=== PATIENT | female | born 1935 | race Caucasian/White ===

== ENCOUNTER → 2016-06-18 | Outpatient (CLI) | payer MEDICARE, BC | END | disposition home or self-care (01) | LOC: PCVCCLINIC 08:24 | PROVIDERS: ATTEND Internal Medicine Cardiovascular Disease | DX: E78.5 Hyperlipidemia, unspecified (principal) | CPT/HCPCS: 80061 ==

== ENCOUNTER → 2016-06-25 | Outpatient (CLI) | payer MEDICARE, BC | END | disposition home or self-care (01) | LOC: PCVCIMAG 12:53 | PROVIDERS: ATTEND Internal Medicine Cardiovascular Disease | DX: I65.23 Occlusion and stenosis of bilateral carotid arteries (principal); E78.5 Hyperlipidemia, unspecified; I10 Essential (primary) hypertension; E11.9 Type 2 diabetes mellitus without complications; I25.10 Atherosclerotic heart disease of native coronary artery without angina pectoris; I35.0 Nonrheumatic aortic (valve) stenosis | CPT/HCPCS: 93005; 93880; G0463 ==

== ENCOUNTER → 2016-11-05 | Outpatient (CLI) | payer MEDICARE, BC ==
--- NOTE | 2016-11-05 10:13 | PCVCIMAG ---
EXAM: BILATERAL LOWER EXTREMITY ARTERIAL DUPLEX INDICATION: Peripheral Arterial Disease. Leg pain. FINDINGS: Right Leg: Satisfactory arterial waveforms in the common femoral and profunda femoral artery and throughout the superficial femoral artery and popliteal artery without flow-limiting stenosis. Occlusion mid anterior tibial artery. Peroneal artery is patent. 50% stenosis mid posterior tibial artery. Left Leg: Satisfactory arterial waveforms in the common femoral and profunda femoral artery and throughout the superficial femoral artery and popliteal artery without flow-limiting stenosis. Occlusion mid anterior tibial artery. Peroneal artery is patent. 50% stenosis mid posterior tibial artery. IMPRESSION: No flow-limiting superficial femoral or popliteal artery stenosis bilaterally. Occlusion of the mid/distal anterior tibial arteries bilaterally. Mild bilateral posterior tibial artery stenosis. LOC:[id number]
== END | disposition home or self-care (01) ==
LOC: PCVCIMAG 07:51
PROVIDERS: ATTEND Internal Medicine Cardiovascular Disease
DX: I73.9 Peripheral vascular disease, unspecified (principal); I77.89 Other specified disorders of arteries and arterioles
CPT/HCPCS: 93925

== ENCOUNTER → 2017-03-30 | Outpatient (CLI) | payer MEDICARE, BC ==
--- NOTE | 2017-03-30 15:08 | PCVCIMAG ---
APPROVED REPORT Study performed: 03/30/2017 13:00:55 EXAM: Comprehensive 2D, Doppler, and color-flow Echocardiogram Patient Location: Echo lab Status: routine BSA: 1.82 HR: 61 bpmBP: 120/62 mmHg Rhythm: NSR Other Information Study Quality: Adequate Risk Factors: Cardiac Risk Factors: HTN Indications Diabetes CAD Aortic Stenosis 2D Dimensions LVEF(%): 49.60 (>50%) IVSd: 11.55 (7-11mm)LVOT Diam: 21.31 (18-24mm) LVDd: 39.43 mm PWd: 12.24 (7-11mm) LVDs: 29.68 (25-40mm) Left Atrium: 41.39 (27-40mm) Aortic Root: 27.34 mm LV Single Plane 4CH: 56.87 % LV Single Plane 2CH: 55.24 %Mcdonald's LVEF: 56.06 % Biplane EF: 54.5 % Volumes Left Atrial Volume (Systole) Single Plane 4CH: 73.31 mLSingle Plane 2CH: 77.82 mL LA ESV Index: 45.00 mL/m2 Aortic Valve AoV Peak Raj.: 2.50 m/s AO Peak Gr.: 25.04 mmHgLVOT Max P.53 mmHg AO Mean Gr.: 12.72 mmHgLVOT Mean P.50 mmHg AO V2 Mean: 1.68 m/sLVOT Max V: 1.06 m/s AO V2 VTI: 62.90 cm ELROY (VTI): 1.58 [id number] V1 VTI: 27.88 cm ELROY Vmax: 1.51 cm2 AI Vmax: 4.37 m/s AI [place]: 2.27 m/s2 AI PHT: 557.86 ms Mitral Valve E/A Ratio: 0.8 MV Decel. Time: 216.95 ms MV E Max Raj.: 0.93 m/s MV A Raj.: 1.12 m/s MV PHT: 62.92 ms IVRT: 121.11 ms Pulmonary Valve PV Peak Raj.: 0.94 m/sPV Peak Gr.: 3.55 mmHg Pulmonary Vein P Vein S: 0.31 m/sP Vein A: 0.28 m/s P Vein D: 0.51 m/sP Vein A Dur.: 131.5 msec P Vein S/D Ratio: 0.61 Tricuspid Valve TR Peak Raj.: 2.10 m/s TR Peak Gr.: 17.60 mmHg Left Ventricle The left ventricle is normal size. There is normal LV segmental wall motion. Mild concentric left ventricular hypertrophy. Left ventricular systolic function is normal. The left ventricular ejection fraction is within the normal range. LVEF is 55-60%. Grade I - abnormal relaxation pattern. Right Ventricle The right ventricle is normal size. The right ventricular systolic function is normal. Atria Left atrium is mild-moderately dilated. The right atrium size is normal. Aortic Valve The aortic valve is mildly to moderately sclerotic. No aortic regurgitation is present. There is mild valvular aortic stenosis. Calculated aortic valve area is 1.5 cm2 with maximum pressure gradient of 25 mmHg and mean pressure gradient of 13 mmHg. Mitral Valve The mitral valve is normal in structure. There is no mitral valve regurgitation noted. No evidence of mitral valve stenosis. Tricuspid Valve The tricuspid valve is normal in structure. There is no tricuspid valve regurgitation noted. Pulmonic Valve The pulmonary valve is normal in structure. There is no pulmonic valvular regurgitation. Great Vessels The aortic root is normal in size. IVC is normal in size and collapses with >50% inspiration Pericardium There is no pericardial effusion. There is no pleural effusion. <Conclusion> The left ventricle is normal size. Mild concentric left ventricular hypertrophy. LVEF is 55-60%. Grade I - abnormal relaxation pattern. Left atrium is mild-moderately dilated. The right atrium size is normal. The aortic valve is mildly to moderately sclerotic. There is mild valvular aortic stenosis. Calculated aortic valve area is 1.5 cm2 with maximum pressure gradient of 25 mmHg and mean pressure gradient of 13 mmHg. There is no mitral valve regurgitation noted. There is no pericardial effusion.
--- NOTE | 2017-03-30 15:09 | PCVCIMAG ---
EXAM: BILATERAL CAROTID DUPLEX INDICATION: Carotid Occlusive Disease. FINDINGS: Doppler Measurements (centimeters per second): RIGHT: Peak CCA-68, Peak ECA-91, Diastolic ICA-15, Peak ICA-89, ICA/CCA Ratio-1.3. LEFT: Peak CCA-81, Peak ECA-85, Diastolic ICA-25, Peak ICA-200, ICA/CCA Ratio-2.5. RIGHT CAROTID: The carotid bulb has moderate plaque. The proximal internal carotid artery shows <40% stenosis. The common carotid artery shows no significant stenosis. The external carotid artery shows no significant stenosis. LEFT CAROTID: The carotid bulb has moderate plaque. The proximal internal carotid artery shows 60% stenosis. The common carotid artery shows no significant stenosis. The external carotid artery shows no significant stenosis. Antegrade flow in both vertebral arteries. IMPRESSION: <40% stenosis of the right internal carotid artery with moderate plaque. 60% stenosis of the left internal carotid artery with moderate plaque. LOC:[place] [id number]
== END | disposition home or self-care (01) ==
LOC: PCVCIMAG 12:42
PROVIDERS: ATTEND Internal Medicine Cardiovascular Disease
DX: I65.23 Occlusion and stenosis of bilateral carotid arteries (principal); I25.10 Atherosclerotic heart disease of native coronary artery without angina pectoris; I10 Essential (primary) hypertension; I77.9 Disorder of arteries and arterioles, unspecified; E11.9 Type 2 diabetes mellitus without complications; I35.0 Nonrheumatic aortic (valve) stenosis; R29.898 Other symptoms and signs involving the musculoskeletal system; Z79.899 Other long term (current) drug therapy; Z79.82 Long term (current) use of aspirin
CPT/HCPCS: 80061; 93005; 93306; 93880; G0463

== ENCOUNTER → 2017-05-06 | Outpatient (CLI) | payer MEDICARE, BC | END | disposition home or self-care (01) | LOC: PCVCIMAG 15:15 | DX: I73.9 Peripheral vascular disease, unspecified (principal); I70.8 Atherosclerosis of other arteries | CPT/HCPCS: 93925 ==

== ENCOUNTER → 2017-10-28 | Outpatient (CLI) | payer MEDICARE, BC ==
[~2017-10-28] MED LIST: REGADENOSON 0.4 MG/5 ML DISP.SYRIN. IV
== END | disposition home or self-care (01) ==
LOC: PCVCIMAG 14:21
DX: I25.10 Atherosclerotic heart disease of native coronary artery without angina pectoris (principal); I10 Essential (primary) hypertension; I65.23 Occlusion and stenosis of bilateral carotid arteries; E78.5 Hyperlipidemia, unspecified; I73.9 Peripheral vascular disease, unspecified; E11.9 Type 2 diabetes mellitus without complications; I44.7 Left bundle-branch block, unspecified; I35.0 Nonrheumatic aortic (valve) stenosis; Z79.899 Other long term (current) drug therapy
CPT/HCPCS: 78452; 93005; 93017; A9500; G0463; J2785

== ENCOUNTER → 2018-05-21 | Outpatient (CLI) | payer MEDICARE, BC ==
--- NOTE | 2018-05-21 14:11 | PCVCIMAG ---
EXAM: BILATERAL CAROTID DUPLEX INDICATION: Carotid Occlusive Disease. FINDINGS: Doppler Measurements (centimeters per second): RIGHT: Peak CCA-62, Peak ECA-77, Diastolic ICA-21, Peak ICA-92, ICA/CCA Ratio-1.5. LEFT: Peak CCA-73, Peak ECA-115, Diastolic ICA-44, Peak ICA-269, ICA/CCA Ratio-3.7. RIGHT CAROTID: The carotid bulb has moderate plaque. The proximal internal carotid artery shows <40% stenosis. The common carotid artery shows no significant stenosis. The external carotid artery shows no significant stenosis. LEFT CAROTID: The carotid bulb has moderate plaque. The proximal internal carotid artery shows 70-80% stenosis. The common carotid artery shows no significant stenosis. The external carotid artery shows no significant stenosis. Antegrade flow in both vertebral arteries. IMPRESSION: <40% stenosis of the right internal carotid artery with moderate plaque. 70-80% stenosis of the left internal carotid artery with moderate plaque. Since March 2017 there has been progression of left carotid stenosis. Interval follow-up in 6 months is suggested. LOC:[id number]
--- NOTE | 2018-05-21 17:29 | PCVCIMAG ---
APPROVED REPORT Study performed: 05/21/2018 14:02:56 EXAM: Comprehensive 2D, Doppler, and color-flow Echocardiogram Patient Location: Echo lab Room #: 2Status: routine BSA: 1.82 HR: 53 bpmBP: 116/48 mmHg Rhythm: NSR Other Information Study Quality: Good Risk Factors: Cardiac Risk Factors: HTN, Hyperlipidemia, DM Indications Aortic Valve Disease Diabetes CAD Hypertension/HDD 2D Dimensions IVSd: 7.99 (7-11mm)LVOT Diam: 20.78 (18-24mm) LVDd: 46.96 mm PWd: 9.40 (7-11mm)Ascending Ao: 31.65 (22-36mm) LVDs: 31.44 (25-40mm) Left Atrium: 39.97 (27-40mm) Aortic Root: 24.98 mm LV Single Plane 4CH: 55.90 % LV Single Plane 2CH: 59.67 % Biplane EF: 57.3 % Volumes Left Atrial Volume (Systole) Single Plane 4CH: 63.84 mLSingle Plane 2CH: 75.97 mL Biplane LA Volume: 70.00 mLLA ESV Index: 39.00 mL/m2 Aortic Valve AoV Peak Raj.: 2.43 m/s AO Peak Gr.: 24.84 mmHgLVOT Max P.76 mmHg AO Mean Gr.: 16.02 mmHgLVOT Mean P.43 mmHg AO V2 Mean: 1.94 m/sLVOT Max V: 0.99 m/s AO V2 VTI: 69.71 cmLVOT Mean V: 0.75 m/s ELROY (VTI): 1.36 [id number] V1 VTI: 27.91 cm ELROY Vmax: 1.38 cm2 SV (LVOT): 94.57 mL Mitral Valve E/A Ratio: 1.0 MV Decel. Time: 181.40 ms MV E Max Raj.: 1.06 m/s MV A Raj.: 1.08 m/s IVRT: 110.73 ms TDI E/Lateral E': 17.67E/Medial E': 17.67 Medial E' Raj.: 0.06 m/s Lateral E' Raj.: 0.06 m/s Pulmonary Valve PV Peak Raj.: 1.02 m/sPV Peak Gr.: 4.13 mmHg Tricuspid Valve TV Vmax: 0.50 m/s Left Ventricle The left ventricle is normal size. There is normal LV segmental wall motion. There is normal left ventricular wall thickness. Left ventricular systolic function is normal. The left ventricular ejection fraction is within the normal range. The left ventricular diastolic function is normal. Right Ventricle The right ventricle is normal size. The right ventricular systolic function is normal. Atria Left atrium is mildly dilated. The right atrium size is normal. Aortic Valve Moderate aortic valve sclerosis. Aortic valve leaflets are sclerotic with decreased opening. No aortic regurgitation is present. Mild to moderate aortic stenosis. Highest mean aortic valve gradient is 16_mmHg. Peak aortic valve gradient is 24 mmHg. Calculated ELROY by the continuity equation is 1.4_cm2. Mitral Valve The mitral valve is normal in structure. There is no mitral valve regurgitation noted. No evidence of mitral valve stenosis. The posteriotr leaflet is slightly redundant without prolapse. Tricuspid Valve The tricuspid valve is normal in structure. There is no tricuspid valve regurgitation noted. Pulmonic Valve The pulmonary valve is normal in structure. Trace pulmonic regurgitation. Great Vessels The aortic root is normal in size. The ascending aorta is normal in size. IVC is normal in size and collapses >50% with inspiration. Pericardium There is no pericardial effusion. There is no pleural effusion. <Conclusion> The left ventricle is normal size. Left ventricular systolic function is normal. The left ventricular ejection fraction is within the normal range. The left ventricular diastolic function is normal. The right ventricular systolic function is normal. Left atrium is mildly dilated. Moderate aortic valve sclerosis. Aortic valve leaflets are sclerotic with decreased opening. Mild to moderate aortic stenosis. Highest mean aortic valve gradient is 16_mmHg. Peak aortic valve gradient is 24 mmHg. Calculated ELROY by the continuity equation is 1.4_cm2. There is no mitral valve regurgitation noted. There is no tricuspid valve regurgitation noted. The aortic root is normal in size. There is no pericardial effusion.
== END | disposition home or self-care (01) ==
LOC: PCVCIMAG 13:29
PROVIDERS: ATTEND Internal Medicine Cardiovascular Disease
DX: I65.23 Occlusion and stenosis of bilateral carotid arteries (principal); I35.0 Nonrheumatic aortic (valve) stenosis; I25.10 Atherosclerotic heart disease of native coronary artery without angina pectoris; I10 Essential (primary) hypertension; E78.5 Hyperlipidemia, unspecified; I44.7 Left bundle-branch block, unspecified; E11.9 Type 2 diabetes mellitus without complications; R00.1 Bradycardia, unspecified
CPT/HCPCS: 36415; 80061; 93005; 93306; 93880; G0463

== ENCOUNTER → 2019-01-04 | Outpatient (CLI) | payer MEDICARE, BC | END | disposition home or self-care (01) | LOC: PCVCCLINIC 16:00 | PROVIDERS: ATTEND Internal Medicine Cardiovascular Disease | DX: I25.10 Atherosclerotic heart disease of native coronary artery without angina pectoris (principal); E78.00 Pure hypercholesterolemia, unspecified; E11.9 Type 2 diabetes mellitus without complications; I10 Essential (primary) hypertension; I35.0 Nonrheumatic aortic (valve) stenosis; I65.23 Occlusion and stenosis of bilateral carotid arteries; I73.9 Peripheral vascular disease, unspecified; E78.5 Hyperlipidemia, unspecified; Z90.710 Acquired absence of both cervix and uterus; Z82.49 Family history of ischemic heart disease and other diseases of the circulatory system; Z80.9 Family history of malignant neoplasm, unspecified; Z88.6 Allergy status to analgesic agent; Z79.899 Other long term (current) drug therapy; Z79.84 Long term (current) use of oral hypoglycemic drugs; Z79.82 Long term (current) use of aspirin | CPT/HCPCS: 36415; 80061; 93005; G0463 ==